=== PATIENT | female | born 1990 | race Caucasian/White ===

== ENCOUNTER 2016-11-12 08:16 | Emergency (ER) | payer SELFPAY ==
--- NOTE | 2016-11-12 09:08 | ED Physician Documentation ---
Headache - HPI Stated Complaint: Migraine <Raghav Whitney - Last Filed: 11/12/16 09:08> - HISTORIAN Historian: patient - HPI Chief Complaint: Headache Onset: days ago (3 days) Timing: still present New Gradual Onset: Yes Exposure To: none Severity: moderate Quality: similar to previous, pain Associated Symptoms: sensitivity to light, nausea. denies: fever, chills, vomiting, neck pain, stiffness Preceding Symptoms: visual disturbance Exacerbated By: light, noise, movement Further Comments: yes (Patient has had a nursing home history of migrain headaches. Occurs aobut once a month. Has tramadol at home that she uses. This headache started 3 days ago. Has not been able to get it under control. Has felt nauseated at times but is better now. No vomioting noted.) - ROS NEURO/PSYCH: denies: confusion, anxiety EYES/ENT: denies: sore throat MS/SKIN/LYMPH: denies: muscle aches - PAST HX Medical History: migraines. denies: hypertension Surgical History: cholecystectomy Immunizations: referred to PCP - SOCIAL HX Smoking History: less than 1 pack/day Alcohol Use: none Drug Use: none - Family HX Family History: none - REVIEWED ASSESSMENTS Nursing Assessment Reviewed: Yes Vitals Reviewed: Yes <Patrick Roblero - Last Filed: 11/12/16 10:15> - PAST HX Allergies/Adverse Reactions: Allergies Allergy/AdvReac Type Severity Reaction Status Date / Time No Known Allergies Allergy Verified 11/12/16 08:24 Home Medications: Ambulatory Orders Medication Instructions Recorded Tramadol HCl [Ultram] 1 tab PO D 02/06/16 - VITAL SIGNS Vital Signs: Vital Signs Temp Pulse Resp BP Pulse Ox 98.0 F 88 18 130/100 98 11/12/16 08:27 11/12/16 08:27 11/12/16 08:27 11/12/16 08:27 11/12/16 08:27 (Raghav Whitney) (Patrick Roblero) Progress <Raghav Whitney - Last Filed: 11/12/16 09:08> <Patrick Roblero - Last Filed: 11/12/16 10:15> - Progress Progress: 10:03 Headache is improved some (Patrick Roblero) Headache Physical Exam - EXAM General Appearance: no acute distress, alert EENT: no facial swelling, eyes nml inspection, PERRL Neck: normal inspection, thyroid normal, supple Respiratory: no resp distress, chest non-tender, breath sounds normal. No: wheezes, rhonchi CVS: reg. rate & rhythm, heart sounds nml Abdomen: non-tender, no organomegaly Skin: color nml, no rash - NEURO/PSYCH Higher Functions: alert, oriented x3, nml speech, mood/affect nml Cranial: nml as tested, no evidence of acute CVA <Patrick Roblero - Last Filed: 11/12/16 10:15> Discharge <Raghav Whitney - Last Filed: 11/12/16 09:08> Decision to Admit: NO Date of Decison to Admit: 11/12/16 Decision Time: 09:25 <Patrick Roblero - Last Filed: 11/12/16 10:15> Clincal Impression: Migraine headache without aura Qualifiers: Status migrainosus presence: without status migrainosus Intractability: not intractable Qualified Code(s): G43.009 - Migraine without aura, not intractable , without status migrainosus Referrals: Primary Doctor,No [Primary Care Provider] - 2 Days Additional Instructions: Home and rest in a quiet room. Make an appointment with your primary care provider to see if you would benifit from a triptan medication. Continue with your home meds. Home Medications: Ambulatory Orders Tramadol HCl [Ultram] 1 tab PO D 02/06/16 Condition: Stable Disposition: 01 HOME, SELF-CARE
[2016-11-12] MEDS ORDERED: KETOROLAC TROMETHAMINE 30 MG/1ML VIAL IVP ONE (09:14)
[2016-11-12] MEDS ORDERED: 0.9 % SODIUM CHLORIDE 1,000 ML IV ONE (09:20)
[2016-11-12] MEDS ORDERED: 0.9 % SODIUM CHLORIDE 1,000 ML IV SCH (09:30)
[2016-11-12 10:40] VITALS: BP 133/89
== END 2016-11-12 10:38 | disposition home or self-care (01) ==
LOC: ED 08:16
DX: G43.009 Migraine without aura, not intractable, without status migrainosus (principal)
CPT/HCPCS: J1885; J7030; 96361; 96374; 99283; 99284; S1016

== ENCOUNTER 2017-02-10 15:42 | Emergency (ER) | payer SELFPAY ==
[2017-02-10 15:58] VITALS: BP 113/82
--- NOTE | 2017-02-10 16:12 | ED Physician Documentation ---
Sore Throat/Dental Pain - HISTORIAN Historian: patient - HPI Stated Complaint: sore throat Chief Complaint: Sore Throat Associated Symptoms: sore throat, runny nose, cough Further Comments: yes (26 year old female patient presents with 3 day history of sore throat, laryngitis, cough and fever.) - ROS CONST: no problems CVS/RESP: none GI/: denies: nausea, vomiting MS/SKIN/LYMPH: denies: muscle aches, rash, leg swelling, ankle swelling NEURO/PSYCH: none - PAST HX Past History: none Other History: none Allergies/Adverse Reactions: Allergies Allergy/AdvReac Type Severity Reaction Status Date / Time No Known Allergies Allergy Verified 02/10/17 16:02 Home Medications: Ambulatory Orders Medication Instructions Recorded Tramadol HCl [Ultram] 1 tab PO D 02/06/16 Azithromycin [Zithromax] 250 mg PO DAILY #6 tablet 02/10/17 - SOCIAL HX Smoking History: non-smoker - FAMILY HX Family History: No - VITAL SIGNS Vital Signs: Vital Signs Temp Pulse Resp BP Pulse Ox 98.3 F 99 H 12 113/82 99 02/10/17 15:54 02/10/17 15:54 02/10/17 15:54 02/10/17 15:54 02/10/17 15:54 - REVIEWED ASSESSMENTS Nursing Assessment Reviewed: Yes Vitals Reviewed: Yes Progress - Progress Progress: Rapid strep negative, will treat with antibiotics due to reported fever, exudates on tonsils and pharyngeal erythema. Patient reports she is out of her inhaler. ED Results Lab/Radiology - Orders Orders: ED Orders Category Date Time Status Rapid Strep [GRP A STREP SCREEN] Stat Lab 02/10/17 Ordered Sore throat Physical Exam - EXAM General Appearance: mild distress Head/Neck: head nml inspection, trachea midline, no lymphadenopathy, thyroid nml , neck nml inspection Eyes: eyes nml inspection, PERRL Mouth/Throat: lips nml, gums nml, no drooling, no air way problems, no thrush, membranes nml, pharyngeal erythema, tonsillar exudate, hoarse voice Respiratory: no resp. distress, wheezes (faint, expiratory on right) CVS: reg. rate & rhythm, heart sounds nml Abdomen: soft, no organomegaly, normal bowel sounds, no abdominal bruit, no distension Extremities: non-tender, nml ROM Skin: normal color, warm/dry, NR, INT, PAL, DR Neuro/Psych: oriented x3, mood/affect nml Discharge Clincal Impression: Pharyngitis, acute Qualifiers: Pharyngitis/tonsillitis etiology: unspecified etiology Qualified Code(s): J02.9 - Acute pharyngitis, unspecified Prescriptions: Azithromycin [Zithromax] 250 mg PO DAILY #6 tablet Referrals: Primary Doctor,No [Primary Care Provider] - 2 Days Additional Instructions: Chloraseptic spray or lozenges as needed for throat pain. Warm salt water gargles as needed pain Increase your fluid intake juices, hot tea, non-caffeinated beverages If you are congested - You may want to try Vicks rub on your chest and/or feet Use a humidifier in the room where you sleep. You can also sit in a steam filled bathroom 1-2 times a day. Tylenol or Ibuprofen as needed for fever, pain and body aches. ict support engineer your antibiotic and start it today. Home Medications: Ambulatory Orders Tramadol HCl [Ultram] 1 tab PO D 02/06/16 Azithromycin [Zithromax] 250 mg PO DAILY #6 tablet 02/10/17 Condition: Stable Disposition: 01 HOME, SELF-CARE Decision to Admit: NO Decision Time: 16:11
== END 2017-02-10 16:22 | disposition home or self-care (01) ==
LOC: ED 15:42
DX: J02.9 Acute pharyngitis, unspecified (principal)
CPT/HCPCS: 87070; 87880; 99283

== ENCOUNTER 2017-04-06 23:40 | Emergency (ER) | payer OTHER ==
[2017-04-07 00:11] VITALS: BP 143/97
--- NOTE | 2017-04-07 00:31 | ED Physician Documentation ---
General Adult - HISTORIAN Historian: patient - HPI Stated Complaint: sore throat with fever Chief Complaint: General Adult Additional Information: sore throat for 2 days. Fever to 105. Sweaty at work today. - ROS CONST: fever - PAST HX Past History: none Allergies/Adverse Reactions: Allergies Allergy/AdvReac Type Severity Reaction Status Date / Time No Known Allergies Allergy Verified 04/07/17 00:12 - SOCIAL HX Smoking History: cigarettes (1 PPD x 17 years) - FAMILY HX Family History: No - VITAL SIGNS Vital Signs: Vital Signs Temp Pulse Resp BP Pulse Ox 100.4 F H 89 16 143/97 99 04/06/17 23:45 04/06/17 23:45 04/06/17 23:45 04/06/17 23:45 04/06/17 23:45 - REVIEWED ASSESSMENTS Nursing Assessment Reviewed: Yes Vitals Reviewed: Yes Progress - Progress Progress: Rapid strep negative General Adult Physical Exam - PHYSICAL EXAM GENERAL APPEARANCE: no distress (no exudate) EENT: eye inspection normal, ENT inspection normal (except throat), pharyngeal erythema NECK: normal inspection RESPIRATORY: no resp distress, breath sounds normal, wheezes (slight, throughout ) CVS: reg rate & rhythm, heart sounds normal BACK: normal inspection SKIN: warm/dry, normal color EXTREMITIES: no evidence of injury NEURO: CN's nml as tested, motor nml, sensation nml, cognition normal Discharge Clincal Impression: Sore throat Referrals: Pb Townsend MD [Primary Care Provider] - 2 Days Additional Instructions: The ER will call you if the rapid strep test was a false negative. Drink plenty of water. Warm salt water gargles will make your throat feel better. Condition: Good Disposition: 01 HOME, SELF-CARE Decision to Admit: NO Decision Time: 00:25
== END 2017-04-07 00:40 | disposition home or self-care (01) ==
LOC: ED 23:40
DX: J02.9 Acute pharyngitis, unspecified (principal)
CPT/HCPCS: 87070; 87880; 99283